=== PATIENT | female | born 1980 | race Caucasian/White ===

== ENCOUNTER 2024-02-25 09:33 | Emergency (ER) | payer OTHER ==
[~2024-02-25] VITALS: Ht 162.6 cm; Wt 52.2 kg
[~2024-02-25 09:33] MED LIST: FLOMAX0.4 MG PO; HYDROCODON-ACE1 EA15; IMITREX100 MG PO; KETOROLAC TROME10 MG PO; MEDROL4 MG PO; ONDANSETRON ODT4 MG PO; TEMAZEPAM15 MG PO
[2024-02-25 09:48] VITALS: PULSE 103; RESP 18; TEMP 98.2; O2SAT 100
[2024-02-25] MEDS: KETOROLAC TROMETHAMINE 30 MG/ML VIAL IV ONE (10:30)
[2024-02-25] MEDS: FAMOTIDINE 20 MG/2 ML VIAL IV ONE (10:30)
[2024-02-25] MEDS: ONDANSETRON HCL INJ 2MG/ML 2ML 2 MG/ML VIAL IV ONE (10:30)
[2024-02-25] MEDS: ACETAMINOPHEN 325 MG TAB PO ONE (10:31)
[2024-02-25] MEDS: LACTATED RINGER'S 1,000 ML INJ ONE (10:59)
[2024-02-25] MEDS: POTASSIUM CHLORIDE 20 MEQ TAB CR PO ONE (11:02)
[2024-02-25] MEDS ORDERED: ONDANSETRON ODT4 MG PO (11:37)
[2024-02-25] MEDS ORDERED: KETOROLAC TROME10 MG PO (11:37)
== END 2024-02-25 11:50 | disposition home or self-care (01) ==
LOC: FSED 09:40
DX: N20.0 Calculus of kidney (principal); I10 Essential (primary) hypertension; G47.00 Insomnia, unspecified; G43.909 Migraine, unspecified, not intractable, without status migrainosus; Z88.1 Allergy status to other antibiotic agents; Z91.041 Radiographic dye allergy status; Z79.899 Other long term (current) drug therapy
CPT/HCPCS: 74176; 80053; 81003; 81025; 85025; 99284; J1885; J2405

== ENCOUNTER 2024-04-13 14:46 | Emergency (ER) | payer OTHER ==
[~2024-04-13] VITALS: Ht 162.6 cm; Wt 52.2 kg
[2024-04-13 14:56] VITALS: PULSE 92; RESP 16; TEMP 98.3; O2SAT 99
[2024-04-13] MEDS: SUMATRIPTAN SUCCINATE 6 MG/0.5 ML VIAL SC ONE (15:26)
== END 2024-04-13 16:47 | disposition home or self-care (01) ==
LOC: ER 14:49
DX: G43.909 Migraine, unspecified, not intractable, without status migrainosus (principal); I10 Essential (primary) hypertension; F41.9 Anxiety disorder, unspecified; G47.00 Insomnia, unspecified; F17.210 Nicotine dependence, cigarettes, uncomplicated
CPT/HCPCS: 99282; J3030